=== PATIENT | female | born 1950 | race Caucasian/White ===

== ENCOUNTER → 2018-02-20 09:54 | Outpatient (CLI) | payer MEDICARE, OTHER, SELFPAY ==
--- NOTE | 2018-02-20 10:01 | BI_ITS ---
MAMMOGRAPHY - BILATERAL SCREENING REASON FOR EXAM: Female, 67 years old. Routine annual screening examination. PERTINENT HISTORY: Sister with breast cancer. TECHNIQUE: Digital bilateral breast mary (3D mammographic acquisition) in the CC and MLO projections. 2-D mediolateral oblique (MLO) and craniocaudad (CC) views of both breasts were obtained. CAD: Full Field Digital Mammography with Computer Added Detection was performed. COMPARISON: Comparison is made with prior study dated September 29, 2016 and July 08, 2015. FINDINGS: Breast Composition: There are scattered areas of fibroglandular density. There are no dominant masses or suspicious calcifications. No other significant abnormalities are identified. There has been no significant change since the prior study. BI/SCREENING MAMM (CAD), BILAT IMPRESSION: Stable bilateral screening mammogram. Yearly follow-up mammogram recommended. (A) ASSESSMENT CATEGORY: BIRADS Category 1: Negative. A letter regarding these results will be sent to the patient by the facility within 30 days. Approximately 10% of breast cancers are not detected by mammography. A normal mammogram should not delay biopsy of a clinically suspicious abnormality. [id number] Electronically Signed: August Taylor MD at 10:57 EDT Tel [phone], Service support ,
== END ==
PROVIDERS: Family Provider Family Medicine; PCP Family Medicine; Visit Provider Family Medicine
DX: Z12.31 Encounter for screening mammogram for malignant neoplasm of breast (principal)
CPT/HCPCS: 77063; 77067

== ENCOUNTER → 2018-04-22 08:59 | Outpatient (CLI) | payer MEDICARE, OTHER, SELFPAY ==
[2018-04-22 10:34] LABS: ALB/GLOB Ratio 1.1 RATIO (0.9-2.4); AST(SGOT) 29 U/L (15-37); Alanine Aminotransfer ALT/SGPT 45 U/L (13-56); Albumin, Serum 3.8 g/dL (3.2-5.0); Alkaline Phosphatase 84 U/L (45-117); Anion Gap 9 (5-15); BUN 13 mg/dL (7-18); BUN/Creat Ratio 20.5 RATIO (10-20); Calcium,Total 8.8 mg/dL (8.5-10.1); Chloride 106 mmol/L (98-107); Cholesterol 188 mg/dL (200); Creatinine, Serum 0.63 mg/dL (0.55-1.02); EST Glomerular Filtration Rate 100 mL/min (>60); Est Glom Filt Rate - Afr Amer 121 mL/min (>60); Globulin 3.6 g/dL (2.2-4.2); Glucose 90 mg/dL (74-106); High Density Lipoprotein 49 mg/dL; Potassium 3.8 mmol/L (3.5-5.1); Protein, Total 7.4 g/dL (6.4-8.2); Sodium Level 141 mmol/L (136-145); Triglycerides 185 mg/dL; Very Low Density Lipoprotein 37 mg/dL (5-40)
== END ==
PROVIDERS: Family Provider Family Medicine; PCP Family Medicine; Visit Provider Family Medicine
DX: I10 Essential (primary) hypertension (principal); E78.00 Pure hypercholesterolemia, unspecified
CPT/HCPCS: 36415; 80053; 80061

== ENCOUNTER → 2019-05-01 | Outpatient (CLI) | payer MEDICARE, OTHER, SELFPAY ==
[2019-05-01 10:18] VITALS: BMI 32.7
[2019-05-01 12:49] LABS: AST(SGOT) 26 U/L (15-37); Alanine Aminotransfer ALT/SGPT 40 U/L (13-56); Albumin, Serum 3.9 g/dL (3.2-5.0); Alkaline Phosphatase 81 U/L (45-117); Anion Gap 6 (5-15); BUN 15 mg/dL (7-18); BUN/Creat Ratio 17.8 RATIO (10-20); Calcium,Total 9.1 mg/dL (8.5-10.1); Chloride 105 mmol/L (98-107); Cholesterol 191 mg/dL (200); Creatinine, Serum 0.84 mg/dL (0.55-1.02); EST Glomerular Filtration Rate 71 mL/min (>60); Est Glom Filt Rate - Afr Amer 86 mL/min (>60); Globulin 3.8 g/dL (2.2-4.2); Glucose 96 mg/dL (74-106); High Density Lipoprotein 49 mg/dL; Potassium 3.9 mmol/L (3.5-5.1); Protein, Total 7.7 g/dL (6.4-8.2); Sodium Level 139 mmol/L (136-145); Triglycerides 229 mg/dL; Very Low Density Lipoprotein 46 mg/dL (5-40)
== END | disposition home or self-care (01) ==
LOC: BIMLAB 10:32
PROVIDERS: Family Provider Family Medicine; PCP Family Medicine; Visit Provider Family Medicine
DX: E78.00 Pure hypercholesterolemia, unspecified (principal)
CPT/HCPCS: 36415; 80053; 80061

== ENCOUNTER → 2019-06-18 | Outpatient (CLI) | payer MEDICARE, OTHER, SELFPAY ==
[2019-05-01 10:18] VITALS: BMI 32.7
[2019-06-05 10:01] VITALS: BMI 32.7
--- NOTE | 2019-06-18 11:53 | BI_ITS ---
MAMMOGRAPHY - BILATERAL SCREENING REASON FOR EXAM: Female, 68 years old. Routine annual screening examination. PERTINENT HISTORY: Sisters with breast cancer. TECHNIQUE: Digital bilateral breast easton (3D mammographic acquisition) in the CC and MLO projections. 2-D mediolateral oblique (MLO) and craniocaudad (CC) views of both breasts were obtained. CAD: Full Field Digital Mammography with Computer Added Detection was performed. COMPARISON: Comparison is made with prior study dated February 20, 2018 and April 29, 2017. FINDINGS: Breast Composition: There are scattered areas of fibroglandular density. There are no dominant masses or suspicious calcifications. Stable benign-appearing bilateral axillary lymph nodes. No other significant abnormalities are identified. There has been no significant change since the prior study. BI/SCREEN MAMM (CAD) W/EASTON BILAT IMPRESSION: Stable bilateral screening mammogram. Yearly follow-up mammogram recommended. (A) ASSESSMENT CATEGORY: BIRADS Category 2: Benign. A letter regarding these results will be sent to the patient by the facility within 30 days. Approximately 10% of breast cancers are not detected by mammography. A normal mammogram should not delay biopsy of a clinically suspicious abnormality. [id number] Electronically Signed: August Taylor, at 13:03 EST , Service support ,
== END | disposition home or self-care (01) ==
LOC: OPBI 11:52
PROVIDERS: Family Provider Family Medicine; PCP Family Medicine; Referring Provider Family Medicine; Visit Provider Family Medicine
DX: Z12.31 Encounter for screening mammogram for malignant neoplasm of breast (principal)
CPT/HCPCS: 77063; 77067

== ENCOUNTER → 2020-05-20 11:43 | Outpatient (CLI) | payer MEDICARE, OTHER, SELFPAY ==
[2020-05-20 11:07] VITALS: BMI 33.5
[2020-05-20 13:47] LABS: ALB/GLOB Ratio 1.1 RATIO (0.9-2.4); AST(SGOT) 21 U/L (15-37); Alanine Aminotransfer ALT/SGPT 39 U/L (13-56); Albumin, Serum 3.8 g/dL (3.2-5.0); Alkaline Phosphatase 73 U/L (45-117); Anion Gap 4 (5-15); BUN 13 mg/dL (7-18); BUN/Creat Ratio 20.3 RATIO (10-20); Calcium,Total 9.1 mg/dL (8.5-10.1); Chloride 108 mmol/L (98-107); Cholesterol 185 mg/dL (200); Creatinine, Serum 0.64 mg/dL (0.55-1.02); EST Glomerular Filtration Rate 98 mL/min (>60); Est Glom Filt Rate - Afr Amer 119 mL/min (>60); Globulin 3.6 g/dL (2.2-4.2); Glucose 88 mg/dL (74-106); High Density Lipoprotein 49 mg/dL; Potassium 3.5 mmol/L (3.5-5.1); Protein, Total 7.4 g/dL (6.4-8.2); Sodium Level 141 mmol/L (136-145); Triglycerides 219 mg/dL; Very Low Density Lipoprotein 44 mg/dL (5-40)
== END ==
PROVIDERS: PCP Family Medicine; Referring Provider Family Medicine; Visit Provider Family Medicine
DX: E78.00 Pure hypercholesterolemia, unspecified (principal); I63.9 Cerebral infarction, unspecified
CPT/HCPCS: 36415; 80053; 80061

== ENCOUNTER → 2020-06-19 09:53 | Outpatient (CLI) | payer MEDICARE, OTHER, SELFPAY ==
[2020-05-20 11:07] VITALS: BMI 33.5
--- NOTE | 2020-06-19 09:54 | BI_ITS ---
MAMMOGRAPHY - BILATERAL SCREENING REASON FOR EXAM: Female, 69 years old. Routine annual screening examination. PERTINENT HISTORY: Sisters with breast cancer. TECHNIQUE: Digital bilateral breast easton (3D mammographic acquisition) in the CC and MLO projections. 2-D mediolateral oblique (MLO) and craniocaudad (CC) views of both breasts were obtained. CAD: Full Field Digital Mammography with Computer Added Detection was performed. COMPARISON: Comparison is made with prior study dated 06/18/2019 and 02/20/2018. FINDINGS: Breast Composition: There are scattered areas of fibroglandular density. There are no dominant masses or suspicious calcifications. Stable benign-appearing bilateral axillary lymph nodes. No other significant abnormalities are identified. There has been no significant change since the prior study. BI/SCREEN MAMM (CAD) W/EASTON BILAT IMPRESSION: Stable bilateral screening mammogram. Yearly follow-up mammogram recommended. (A) ASSESSMENT CATEGORY: BIRADS Category 2: Benign. A letter regarding these results will be sent to the patient by the facility within 30 days. Approximately 10% of breast cancers are not detected by mammography. A normal mammogram should not delay biopsy of a clinically suspicious abnormality. [id number] Electronically Signed: August Taylor, at 11:06 EST , Service support ,
== END ==
PROVIDERS: PCP Family Medicine; Referring Provider Family Medicine; Visit Provider Family Medicine
DX: Z12.31 Encounter for screening mammogram for malignant neoplasm of breast (principal)
CPT/HCPCS: 77063; 77067

== ENCOUNTER → 2021-03-05 13:25 | Outpatient (CLI) | payer MEDICARE, OTHER, SELFPAY ==
[2021-02-10 14:06] VITALS: BMI 33.5
--- NOTE | 2021-03-05 13:26 | BD_ITS ---
STUDY: DUAL ENERGY X-RAY ABSORPTIOMETRY / DXA REASON FOR EXAM: Female, 70 years old. Post menopausal screening TECHNIQUE: Bone Mineral Density (BMD) measurements of lumbar spine and bilateral hips were obtained. COMPARISON: None. FINDINGS: Lumbar Spine (L1-L4): g/cm2 (0.945) / T-score (-0.9) / Z-score (1.1) Findings are suggestive of normal bone density with a low fracture risk. Left Femur Total: g/cm2 (0.959) / T-score (0.1) / Z-score (1.6) Left Femoral Neck: g/cm2 (0.745) / T-score (-0.9) / Z-score (0.8) Right Femur Total: g/cm2 (0.944) / T-score (0.0) / Z-score (1.5) Right Femoral Neck: g/cm2 (0.725) / T-score (-1.1) / Z-score (0.6) BD/Dexa Bone Density Study IMPRESSION: The patient is considered osteopenic as outlined below according to World Willard Organization (WHO) criteria with a moderate fracture risk. Reference Information: The T-score is the number of standard deviations above or below the standard which is normal for young adults at their peak bone mineral density. The World Health Organization (WHO) interprets the T-scores as follows: Above -1 Normal bone density Between -1 and -2.5 Osteopenia Equal to / or below -2.5 Osteoporosis As a practical clinical guideline, osteopenia may be graded as follows: Mild -1 through -1.5 Moderate -1.6 through -2.0 Severe -2.1 through -2.4 The Z-score is the number of standard deviations above or below age-matched controls. A Z-score of less than -1.5 would be considered abnormal. References: 1. NIH Osteoporosis and Related Bone Diseases www osteo.org 2. International Society for Clinical Densitometry www iscd.org 3. National Osteoporosis Foundation www nof.org Electronically Signed: Monster Prabhakar MD at 8:42 EDT , Service support ,
== END ==
PROVIDERS: PCP Family Medicine; Referring Provider Family Medicine; Visit Provider Family Medicine
DX: Z78.0 Asymptomatic menopausal state (principal); M85.80 Other specified disorders of bone density and structure, unspecified site
CPT/HCPCS: 77080

== ENCOUNTER 2021-04-01 06:47 | Day surgery (SDC) | payer MEDICARE, OTHER, SELFPAY ==
[2021-02-10 14:06] VITALS: BMI 33.5
--- NOTE | 2021-04-01 | COLBX_PTH ---
PATIENT: AARON CORONADO LOC: EN U#:[id number] AGE/SX: 70/F ROOM: RE04/01/[address]: Dr. Nita Mark MD : 1950 BED: DIS: 04/01/2021 SPEC #: [id number] RECD: 04/01/21 11:03 STATUS: HERNÁN YOSEPH #: [id number] MAXIMUS: 04/01/21 00:[address]: Nita Mark DEPT: SURGICAL PATHOLOGY RECD BY: Elver Genao ENTERED: 04/01/21 11:04 SP TYPE: COLON BX QUINN DR: Dr. Jorge Cardoso, DO Tissues: A - Ascending colon B - Transverse colon C - Ascending colon D - Transverse colon E - Descending colon F - Descending colon G - Sigmoid colon biopsy Procedures: Surgery Specimen Level IV HEADER OPERATION: Colonoscopy ? open access (MAC) PRE-OP DIAGNOSIS: Screening for colon cancer TISSUE SUBMITTED: A - Biopsy ascending polyp, B - Transverse polyp, C - Biopsy transverse polyp (container says ?ascending?), D - Transverse polyp, E - Biopsy descending polyp, F - Biopsy descending polyp x4, G - Biopsy sigmoid polyp x3 MICROSCOPIC DIAGNOSIS A. Ascending colon polyp, biopsy: Tubular adenoma. B. Transverse colon polyp, biopsy: Tubular adenoma. C. Transverse colon polyp, biopsy: Tubular adenoma. D. Transverse colon polyp, biopsy: Tubulovillous adenoma. E. Descending colon polyp, biopsy: Fragments of colonic mucosa, no pathologic diagnosis. F. Descending colon polyp, biopsy: Fragments of hyperplastic polyp. G. Sigmoid polyp, biopsy: Fragments of hyperplastic polyp. SJ:effie 04/02/2021 MICROSCOPIC DESCRIPTION Slides are reviewed. GROSS DESCRIPTION A - Received in fixative is one container labeled with the patient's name and designated biopsy ascending polyp. The specimen consists of one irregular fragment of light carlos soft tissue that measures 0.4 x 0.4 x 0.1 cm. The specimen is totally submitted in one cassette. B - Received in fixative is one container labeled with the patient's name and designated transverse polyp. The specimen consists of a carlos-pink polyp measuring 0.7 x 0.5 x 0.3 cm. The specimen is totally submitted in one cassette. C - Received in fixative is one container labeled with the patient's name and designated ascending polyp (as per requisition ?transverse polyp?). The specimen consists of one irregular fragment of light carlos soft tissue that measures 0.4 x 0.2 x 0.1 cm. The specimen is totally submitted in one cassette. D - Received in fixative is one container labeled with the patient's name and designated transverse polyp. The specimen consists of a carlos-pink polyp measuring 0.7 x 0.6 x 0.6 cm. The polyp is bisected. Also present in the container are multiple fragments of carlos soft tissue measuring in aggregate 0.5 x 0.3 x 0.1 cm. The entire specimen is submitted in one cassette. E - Received in fixative is one container labeled with the patient's name and designated descending polyp. The specimen consists of multiple irregular fragments of light carlos soft tissue that in aggregate measure 1 x 0.3 x 0.1 cm. The specimen is totally submitted in one cassette. F - Received in fixative is one container labeled with the patient's name and designated descending polyp. The specimen consists of multiple irregular fragments of light carlso soft tissue that in aggregate measure 1.5 x 0.7 x 0.1 cm. The specimen is totally submitted in one cassette. G - Received in fixative is one container labeled with the patient's name and designated sigmoid polyp. The specimen consists of multiple irregular fragments of light carlos soft tissue that in aggregate measure 1.5 x 0.3 x 0.1 cm. The specimen is totally submitted in one cassette. / SJ:rg 04/01/21 TC:1 CPT: 35374 x7
[2021-04-01] MEDS: Lactated Ringers 1,000 ML 100 ML IV ×2 (07:00→09:31)
[2021-04-01 07:16] VITALS: BP 117/74; PULSE 78; RESP 16; TEMP 36.5; O2SAT 98; BMI 31.4
--- NOTE | 2021-04-01 07:36 | HP.PCM_ITS ---
HPI - General HPI Narrative AARON CORONADO, is a 70 F who presents for screening colonoscopy. Patient's never had a previous colonoscopy. Patient denies any family history of colon cancer. Patient denies any chronic abdominal pain/nausea/vomiting. Patient does have reflux which is controlled with Nexium. Patient states she had an EGD about 10 years ago. [facility] Medical History (Updated 04/01/21 @ 08:[address] Nita Mark MD) Arthritis Blackout Cataracts, both eyes Easy bruising GERD (gastroesophageal reflux disease) Hearing problem High cholesterol History of sarcoidosis Hypertension Non-smoker Shortness of breath on exertion Sleep apnea Stroke TIA (transient ischemic attack) Wears dentures Home Medications cholecalciferol (vitamin D3) 1,000 unit PO DAILY 09/04/15 [History Last Taken Unknown] potassium 99 mg PO DAILY 09/04/15 [History Last Taken Unknown] pyridoxine (vitamin B6) 200 mg PO DAILY 09/04/15 [History Last Taken Unknown] vitamin E (dl, acetate) 400 units PO DAILY 09/04/15 [History Last Taken Unknown] aspirin 81 mg tablet,delayed release 81 mg PO DAILY 04/13/18 [History Last Taken Unknown] esomeprazole magnesium 20 mg capsule,delayed release 20 mg PO DAILY 04/13/18 [History Last Taken Unknown] vitamin B12 500 mcg-folic acid 400 mcg tablet 1 tab PO DAILY 04/13/18 [History Last Taken Unknown] ascorbic acid (vitamin C) 500 mg capsule 1,000 mg PO DAILY cap 08/28/18 [History Last Taken Unknown] rosuvastatin 10 mg PO QHS 03/30/21 [History Last Taken Unknown] valsartan-hydrochlorothiazide 1 tab PO DAILY 03/30/21 [History Last Taken Unknown] Allergy/AdvReac Type Severity Reaction Status Date / Time latex Allergy BREAK Verified 04/01/21 07:01 OUT RED Family History Brother Prostate cancer Heart disease History of open heart surgery Sister Heart disease Breast cancer Hypertension Daughter Congenital heart disease Father Heart disease Mother Heart disease Surgical History (Updated 03/30/21 @ 16:30 by Thea Bermudez) History of bilateral cataract extraction History of bladder suspension procedure History of cholecystectomy History of endoscopy History of hysterectomy History of knee replacement History of left knee replacement Social History Smoking Status: Never smoker alcohol intake: never substance use type: does not use what type of physical activity do you participate in: none Past Medical/Surgical History Planned Operation Planned Operative Procedure/s: Colonoscopy S.O.S: No Previous Hospitalizations/Surgeries HX Hospitalizations: No HX of Surgeries: 2006- GALLBLADDER - RT SHOULDER ARTHROSCOPY 1996-HYSTERECTOMY 1996-BLADDER SURGERY - FATTY MUSCLE TISSUE SURGERY 2008-LEFT TOTAL KNEE REPLACEMENT Any Problems With Anesthesia: No You/Your Family Experience Fever (Hyperthermia) With Anes: No Cholinesterase deficiency: No Cardiovascular Hx Chest Pain within Last 2 months: No Hx of Irregular Heartbeat and/or Afib: No Hx Heart Attack: No Hx Congestive Heart Failure: No Hx Rheumatic Fever: No Hx Hypertension: Yes Hx Internal Defibrillator: No Hx Pacemaker: No Hx Cardiac Catheterization: No Hx Cardiac Surgery/Stents/Etc.: No Hx Stress Test: No Hx Pain in Legs when Walking/Leg Cramps: No (JUST KNEE PAIN) Respiratory Chronic Cough: No HX of Shortness of Breath: No Hoarseness: No Hx Chronic Obstructive Pulmonary Disease (COPD): No Hx Asthma: No Hx Emphysema: No Hx Sleep Apnea: No CPAP: No BIPAP: No Hx Respiratory Tract Infection/Cold (presently): No Do You Snore Loudly (louder than talking or can be heard): Yes Do You Often Feel Tired/ Fatigued/ Sleepy Dring Daytime?: No Has Anyone Observed You Stop Breathing During Sleep?: Yes Result (for STOP score): Positive Hx Smoking: No Smoking Status: Never smoker Gastrointestinal Hx Gastroesophageal Reflux: Yes Controlled With Meds: Yes (DEXILANT) Hx Gastrointestinal Disorders: No Hx Gastrointestinal Bleed: No Hx Ulcer: No Hx Hiatal Hernia: No Difficulty Chewing/Swallowing: No Special diet followed at home: No Hx Unplanned Weight Loss of 20#: No HX Unplanned Weight Gain of 20#: No Neurological Hx Seizures: No HX Syncope/Blackout Spells/Unconsciousness: Yes (EPISODES OF PASSING OUT IN PAST- NOT IN 3MONTHS) Hx Transient Ischemic Attacks (TIA): Yes (1996- NO RESIDUAL) Hx Multiple Sclerosis: No Hx Parkinson's Disease: No Hx Head/Neck Injury: No Hx Headaches: No Hx Back Injury/Pain: No Recent Onset of Speech Difficulty: No Restless Legs: Yes (SHE THINKS SHE DOES- NEVER TREATED) Does patient have nerve stimulator: No Blood Disorder Hx Leukemia: No Bleeding Tendencies: No (LOW DOSE ASPIRIN) Hx Deep Vein Thrombosis: No Hx High Cholesterol: Yes (ON MEDICATION) Blood Transmitted Disease: No Hx Hepatitis: No Hx Cirrhosis: No Hx Anemia: No Hx Blood Disorders: No Reproduction : No Is Patient Lactating: No Hx Tubal Ligation: No Genitourinary Hx Renal Disease: No Musculoskeletal Hx Arthritis: Yes Hx Rheumatoid Arthritis: No Hx Gout: No Recent Onset of an Orthopedic Problem: Yes (RT KNEE) Endocrine Hx Diabetes: No Thyroid Disease: No Hx Steroid Therapy: Yes (CORTISONE SHOTS) Psycho/Social Hx Substance Use: No Hx Alcohol Use: No Hx Anxiety: No Hx Depression: No Mental Illness: No Hx Dementia: No Miscellaneous Hx Cancer: No Recent Exposure to Contagious Disease: No Hx of C-Diff: No Any Loose Teeth: No (UPPER DENTURES) Allergies latex Allergy (Verified 04/01/21 07:01) BREAK OUT RED Discharge Is Pt Admitted From a Intermediate, or a M[facility]: No Who Could Help: After D/C, Where Do you Plan to Go: Return Home From the PAT History Number of Risk Factors: 1 Vital Signs Vital Signs Vital Signs: 04/01/21 07:16 Temperature 97.7 F L Temperature Source Temporal Pulse Rate 78 Respiratory Rate 16 Respiratory Pattern Normal Blood Pressure 117/74 Blood Pressure Mean 88 Blood Pressure Source Monitor Blood Pressure Position Semi-Fowlers Blood Pressure Location Right Arm Pulse Ox 98 Oxygen Delivery Method Room Air Weight Weight: 171 lb 15.369 oz Body Mass Index (BMI) 31.4 Physical Exam Const alert, oriented x3 and no apparent distress HEENT normocephalic and head/scalp atraumatic Resp normal respiratory effort Cardio regular rate GI soft to palpation and non-tender; Negative for non-distended Palpation: Negative for guarding Extremity no clubbing, cyanosis or edema Neuro CN's II-XII intact bilaterally Psych mental status grossly normal Assessment & Plan Assessment/Plan (1) Screening for colon cancer: Procedure Criteria Type of Procedure Procedure Type: Elective Elective Risks - COVID COVID Risk Discussion: The surgeon/proceduralist and patient have discussed in detail the risk of exposure to and/or potential harm posed by the COVID-19 virus with having a surgery/procedure at this time versus the risk of delaying the surgery/procedure. It is not possible to know either the risk of delaying the surgery or procedure or chance of getting an infection with perfect accuracy, but a joint decision was made between the patient and the surgeon/proceduralist to proceed at this time with the scheduled surgery/procedure as indicated on the consent form. Surgery Risks - Colonoscopy Risks Include but are not Limited To: Risks include but are not limited to: Bleeding, perforation requiring further surgery, inability to complete colonoscopy requiring barium enema.
[2021-04-01 09:45] VITALS: BP 117/74; BP 99/60; PULSE 77; RESP 18; TEMP 35.8; O2SAT 99
--- NOTE | 2021-04-01 09:47 | OP.COLON_ITS ---
Patient Name: June Meade Procedure Date: 04/01/2021 8:31 AM Date of : 1950 Age: 70 Procedure: Colonoscopy Indications: Screening for colorectal malignant neoplasm Providers: Nita Mark MD Medicines: Monitored Anesthesia Care Patient Profile: This is a 70 year old female. Last Colonoscopy: none. The patient's first colonoscopy is today. Complications: No immediate complications. Procedure: Pre-Anesthesia Assessment: - Prior to the procedure, a History and Physical was performed, and patient medications and allergies were reviewed. The patient's tolerance of previous anesthesia was also reviewed. The risks and benefits of the procedure and the sedation options and risks were discussed with the patient. All questions were answered, and informed consent was obtained. Prior Anticoagulants: The patient has taken aspirin, last dose was 5 days prior to procedure. ASA Grade Assessment: Per anesthesia. After reviewing the risks and benefits, the patient was deemed in satisfactory condition to undergo the procedure. After I obtained informed consent, the scope was passed under direct vision. Throughout the procedure, the patient's blood pressure, pulse, and oxygen saturations were monitored continuously. The pediatric colonoscope was introduced through the anus and advanced to the cecum, identified by the appendiceal orifice, ileocecal valve and palpation. The colonoscopy was performed without difficulty. The colonoscopy was technically difficult and complex due to a tortuous colon. The patient tolerated the procedure well. The quality of the bowel preparation was good. Scope In: 8:39:04 AM Scope Withdrawal Time 0 hours 53 minutes 51 seconds Scope Out: 9:38:03 AM Total Procedure Duration Time 0 hours 58 minutes 59 seconds Findings: Hemorrhoids were found on perianal exam. Two semi-pedunculated polyps were found in the transverse colon. The polyps were 7 to 8 mm in size. These polyps were removed with a piecemeal technique using a hot snare. Resection and retrieval were complete. Eight sessile polyps were found in the sigmoid colon, descending colon and ascending colon. The polyps were less than 5 mm in size. These polyps were removed with a cold biopsy forceps. Resection and retrieval were complete. Multiple small-mouthed diverticula were found in the sigmoid colon, descending colon and transverse colon. Impression: - Hemorrhoids found on perianal exam. - Two 7 to 8 mm polyps in the transverse colon, removed piecemeal using a hot snare. Resected and retrieved. - Eight less than 5 mm polyps in the sigmoid colon, in the descending colon and in the ascending colon, removed with a cold biopsy forceps. Resected and retrieved. - Diverticulosis in the sigmoid colon, in the descending colon and in the transverse colon. Recommendation: - Discharge patient to home. - Resume previous diet. - Resume aspirin at prior dose in 2 days. - Continue present medications. - Repeat colonoscopy in 1 year for surveillance after piecemeal polypectomy. Procedure Code(s): --- Professional --- 48698, PT, Colonoscopy, flexible; with removal of tumor(s), polyp(s), or other lesion(s) by snare technique [id number], 59, Colonoscopy, flexible; with biopsy, single or multiple Diagnosis Code(s): --- Professional --- Z12.11, Encounter for screening for malignant neoplasm of colon K64.9, Unspecified hemorrhoids D12.3, Benign neoplasm of transverse colon (hepatic flexure or splenic flexure) D12.5, Benign neoplasm of sigmoid colon D12.4, Benign neoplasm of descending colon D12.2, Benign neoplasm of ascending colon K57.30, Diverticulosis of large intestine without perforation or abscess without bleeding CPT copyright 2017 [employer]. All rights reserved. The codes documented in this report are preliminary and upon filling winder review may be revised to meet current compliance requirements. MD Nita Barr MD 04/01/2021 9:46:33 AM This report has been signed electronically. Number of Addenda: 0 Note Initiated On: 04/01/2021 8:31 AM
--- NOTE | 2021-04-01 09:47 | OP.CCLET_ITS ---
04/01/2021 Jorge Cardoso Re : Colonoscopy procedure for June Meade Dear Dr. Cardoso This procedure was performed on Thursday, April 01, 2021. My impressions and recommendations are as follows: Impressions : - Hemorrhoids found on perianal exam. - Two 7 to 8 mm polyps in the transverse colon, removed piecemeal using a hot snare. Resected and retrieved. - Eight less than 5 mm polyps in the sigmoid colon, in the descending colon and in the ascending colon, removed with a cold biopsy forceps. Resected and retrieved. - Diverticulosis in the sigmoid colon, in the descending colon and in the transverse colon. Recommendations : - Discharge patient to home. - Resume previous diet. - Resume aspirin at prior dose in 2 days. - Continue present medications. - Repeat colonoscopy in 1 year for surveillance after piecemeal polypectomy. My findings are described in the full procedure note, which is enclosed. If I can be of further assistance, please feel free to contact me at Doctor phone number(s): , Work: . Sincerely, MD Nita Barr MD 04/01/2021 9:46:33 AM This report has been signed electronically.
[2021-04-01 09:50] VITALS: BP 117/74; BP 117/81; PULSE 72; RESP 16; O2SAT 98
[2021-04-01 09:55] VITALS: BP 117/74; BP 119/78; PULSE 69; RESP 16; O2SAT 97
[2021-04-01 10:00] VITALS: BP 117/74; BP 122/73; PULSE 72; RESP 16; TEMP 35.9; O2SAT 99
[2021-04-01 10:18] VITALS: BP 117/74
== END 2021-04-01 10:41 ==
LOC: EN 06:48 → AC 06:50
PROVIDERS: PCP Family Medicine; Referring Provider Family Medicine; Visit Provider Surgery
PROC: 0DJD8ZZ Inspection of Lower Intestinal Tract, Via Natural or Artificial Opening Endoscopic (ICD-10-PCS; CPT 45378; principal; 2021-04-01 08:10)
DX: Z12.11 Encounter for screening for malignant neoplasm of colon (principal); D12.2 Benign neoplasm of ascending colon; D12.4 Benign neoplasm of descending colon; D12.5 Benign neoplasm of sigmoid colon; D12.3 Benign neoplasm of transverse colon; K64.9 Unspecified hemorrhoids; K57.30 Diverticulosis of large intestine without perforation or abscess without bleeding; Q43.8 Other specified congenital malformations of intestine; I10 Essential (primary) hypertension; E78.00 Pure hypercholesterolemia, unspecified; G47.30 Sleep apnea, unspecified; K21.9 Gastro-esophageal reflux disease without esophagitis; M19.90 Unspecified osteoarthritis, unspecified site; Z79.82 Long term (current) use of aspirin; Z79.899 Other long term (current) drug therapy; Z86.73 Personal history of transient ischemic attack (TIA), and cerebral infarction without residual deficits
CPT/HCPCS: 45380; 45385; 88305; J7120; A4216; J2405

== ENCOUNTER → 2021-05-28 11:16 | Outpatient (CLI) | payer MEDICARE, OTHER, SELFPAY ==
[2021-05-28 12:36] LABS: AST(SGOT) 25 U/L (15-37); Alanine Aminotransfer ALT/SGPT 32 U/L (13-56); Albumin, Serum 3.8 g/dL (3.2-5.0); Alkaline Phosphatase 67 U/L (45-117); Anion Gap 7 (5-15); BUN 13 mg/dL (7-18); BUN/Creat Ratio 20.7 RATIO (10-20); Calcium,Total 9.3 mg/dL (8.5-10.1); Chloride 103 mmol/L (98-107); Cholesterol 190 mg/dL (200); Creatinine, Serum 0.63 mg/dL (0.55-1.02); EST Glomerular Filtration Rate 100 mL/min (>60); Est Glom Filt Rate - Afr Amer 121 mL/min (>60); Globulin 3.9 g/dL (2.2-4.2); Glucose 94 mg/dL (74-106); High Density Lipoprotein 52 mg/dL; Potassium 4.1 mmol/L (3.5-5.1); Protein, Total 7.7 g/dL (6.4-8.2); Sodium Level 139 mmol/L (136-145); Triglycerides 240 mg/dL; Very Low Density Lipoprotein 48 mg/dL (5-40)
== END ==
PROVIDERS: PCP Family Medicine; Referring Provider Family Medicine; Visit Provider Family Medicine
DX: I10 Essential (primary) hypertension (principal)
CPT/HCPCS: 36415; 80053; 80061

== ENCOUNTER → 2021-07-24 09:55 | Outpatient (CLI) | payer MEDICARE, OTHER, SELFPAY ==
--- NOTE | 2021-07-24 09:55 | BI_ITS ---
MAMMOGRAPHY - BILATERAL SCREENING REASON FOR EXAM: Female, 70 years old. Routine annual screening examination. PERTINENT HISTORY: Sisters with breast cancer. TECHNIQUE: Digital bilateral breast easton (3D mammographic acquisition) in the CC and MLO projections. 2-D mediolateral oblique (MLO) and craniocaudad (CC) views of both breasts were obtained. CAD: Full Field Digital Mammography with Computer Added Detection was performed. COMPARISON: Comparison is made with prior study dated 06/19/2020 and 06/18/2019 FINDINGS: Breast Composition: There are scattered areas of fibroglandular density. There are no dominant masses or suspicious calcifications. Stable benign-appearing bilateral axillary nodes. No other significant abnormalities are identified. There has been no significant change since the prior study. BI/SCRN MAMM (CAD)W/EASTON BILAT IMPRESSION: Stable bilateral screening mammogram. Yearly follow-up mammogram recommended. (A) ASSESSMENT CATEGORY: BIRADS Category 2: Benign. A letter regarding these results will be sent to the patient by the facility within 30 days. Approximately 10% of breast cancers are not detected by mammography. A normal mammogram should not delay biopsy of a clinically suspicious abnormality. [id number] Electronically Signed: August Taylor MD at 12:48 EST , Service support ,
== END ==
PROVIDERS: PCP Family Medicine; Referring Provider Family Medicine; Visit Provider Family Medicine
DX: Z12.31 Encounter for screening mammogram for malignant neoplasm of breast (principal)
CPT/HCPCS: 77063; 77067

== ENCOUNTER 2022-04-05 06:14 | Day surgery (SDC) | payer MEDICARE, OTHER, SELFPAY ==
[2022-04-05] VITALS (7 sets, daily range): BP systolic 86–121; BP diastolic 48–65; PULSE 57–70; RESP 14–18; TEMP 36.1–36.4; O2SAT 90–99; BMI 32.9
--- NOTE | 2022-04-05 | COLBX_PTH ---
PATIENT: AARON CORONADO LOC: EN U#:[id number] AGE/SX: 71/F ROOM: RE04/05/[address]: Dr. Nita Mark MD : 1950 BED: DIS: 04/05/2022 SPEC #: [id number] RECD: 04/05/22 09:50 STATUS: HERNÁN RENancy #: [id number] MAXIMUS: 04/05/22 00:[address]: Nita Mark DEPT: SURGICAL PATHOLOGY RECD BY: Elver Genao ENTERED: 04/05/22 09:51 SP TYPE: COLON BX QUINN DR: Dr. Jorge Cardoso, DO Tissues: A - Transverse colon B - Sigmoid colon biopsy C - Rectum, NOS Procedures: Surgery Specimen Level IV HEADER OPERATION: Colonoscopy ? open access (MAC) with polypectomy PRE-OP DIAGNOSIS: History of adenomatous colonic polyps TISSUE SUBMITTED: A ? Transverse polyp, B ? Sigmoid polyp, C ? Rectal polyp biopsy, multiple MICROSCOPIC DIAGNOSIS A. Transverse colon, biopsy: Fragments of hyperplastic polyp. B. Sigmoid colon polyp, biopsy: Consistent with hyperplastic polyp with cautery artifact. C. Rectal polyp, biopsy: Fragments of hyperplastic polyp. AM:effie 04/06/2022 MICROSCOPIC DESCRIPTION Slides are reviewed. GROSS DESCRIPTION A - Received in fixative is one container labeled with the patient's name and designated transverse polyp. The specimen consists of multiple irregular fragments of light carlos soft tissue that in aggregate measure 0.8 x 0.5 x 0.1 cm. The specimen is totally submitted in one cassette. B - Received in fixative is one container labeled with the patient's name and designated sigmoid polyp. The specimen consists of one irregular fragment of light carlos soft tissue that measures 0.3 x 0.2 x 0.1 cm. The specimen is totally submitted in one cassette. C - Received in fixative is one container labeled with the patient's name and designated rectal polyp biopsy, multiple. The specimen consists of multiple irregular fragments of light carlos soft tissue that in aggregate measure 1.5 x 0.6 x 0.1 cm. The specimen is totally submitted in one cassette. / VENKAT:effie 04/05/2022 TC:5 CPT: 51929 x3
[2022-04-05] MEDS: Lactated Ringers 1,000 ML 15 ML IV (06:59)
--- NOTE | 2022-04-05 07:23 | H&P.OPEN ---
HPI - General [facility] Narrative AARON CORONADO, is a 71 F who presents for screening colonoscopy due to history of colon polyps. Patient's last colonoscopy was in March 2021. Patient had several tubular adenomas as well as a tubulovillous adenoma in the transverse colon. Patient states she has bowel movements daily denies any blood. Patient denies any family history of colon cancer. Patient has a chronic abdominal pain/nausea/vomiting. [facility] Medical History (Updated 04/05/22 @ 07:[address] Nita Mark MD) Anemia Arthritis Blackout Cataracts, both eyes Difficulty swallowing GERD (gastroesophageal reflux disease) Hearing problem High cholesterol History of colonic polyps History of diverticulitis History of sarcoidosis Hypertension Hypertension Leg cramps Loss of consciousness Non-smoker Restless legs Shortness of breath on exertion Stroke TIA (transient ischemic attack) Wears glasses Wears hearing aid Wears partial dentures Home Medications cholecalciferol (vitamin D3) 25 mcg (1,000 unit) tablet 1,000 unit PO DAILY supplement 09/04/15 [History Last Taken Unknown] potassium 99 mg tablet 99 mg PO DAILY supplement 09/04/15 [History Last Taken Unknown] pyridoxine (vitamin B6) 50 mg tablet 200 mg PO DAILY supplement 09/04/15 [History Last Taken Unknown] vitamin E (dl, acetate) 180 mg (400 unit) capsule 400 units PO DAILY supplement 09/04/15 [History Last Taken Unknown] aspirin 81 mg tablet,delayed release 81 mg PO DAILY heart health 04/13/18 [History Last Taken Unknown] vitamin B12 500 mcg-folic acid 400 mcg tablet 1 tab PO DAILY supplement 04/13/18 [History Last Taken Unknown] ascorbic acid (vitamin C) 500 mg capsule 1,000 mg PO DAILY supplement 08/28/18 [History Last Taken Unknown] rosuvastatin 10 mg tablet 10 mg PO QHS hyperlipedemia #90 tabs 05/28/21 [Rx Last Taken Unknown] valsartan 160 mg-hydrochlorothiazide 12.5 mg tablet 1 tab PO DAILY BP #90 tabs 05/28/21 [Rx Last Taken Unknown] esomeprazole magnesium 40 mg capsule,delayed release 40 mg PO DAILY GERD #90 caps 11/19/21 [Rx Last Taken 04/05/22] Allergy/AdvReac Type Severity Reaction Status Date / Time latex Allergy BREAK Verified 04/05/22 06:44 OUT RED Family History (Updated 01/28/22 @ 15:52 by Kandice Manning) Brother Prostate cancer Heart disease History of open heart surgery Colon cancer Sister Heart disease Breast cancer Hypertension Daughter Congenital heart disease Father Heart disease Mother Heart disease Surgical History (Updated 03/31/22 @ 10:46 by Rochelle Diana) History of bilateral cataract extraction History of bladder suspension procedure History of cholecystectomy History of colonoscopy History of endoscopy History of hysterectomy History of knee replacement History of left knee replacement Social History Smoking Status: Never smoker alcohol intake: never substance use type: does not use what type of physical activity do you participate in: none Past Medical/Surgical History Planned Operation Planned Operative Procedure/s: OA-CSCOPE S.O.S: No Previous Hospitalizations/Surgeries HX Hospitalizations: No HX of Surgeries: 2006- GALLBLADDER - RT SHOULDER ARTHROSCOPY 1996-HYSTERECTOMY 1996-BLADDER SURGERY - FATTY MUSCLE TISSUE SURGERY 2008-LEFT TOTAL KNEE REPLACEMENT Any Problems With Anesthesia: No You/Your Family Experience Fever (Hyperthermia) With Anes: No Cholinesterase deficiency: No Cardiovascular Hx Chest Pain within Last 2 months: No Hx of Irregular Heartbeat and/or Afib: No Hx Heart Attack: No Hx Congestive Heart Failure: No Hx Rheumatic Fever: No Hx Hypertension: Yes (CONTROLLED WITH MED) Hx Internal Defibrillator: No Hx Pacemaker: No Hx Cardiac Catheterization: No Hx Cardiac Surgery/Stents/Etc.: No Hx Stress Test: No Hx Pain in Legs when Walking/Leg Cramps: No (JUST KNEE PAIN) Respiratory Chronic Cough: No HX of Shortness of Breath: No Hoarseness: No Hx Chronic Obstructive Pulmonary Disease (COPD): No Hx Asthma: No Hx Emphysema: No Hx Sleep Apnea: No CPAP: No BIPAP: No Hx Respiratory Tract Infection/Cold (presently): No Do You Snore Loudly (louder than talking or can be heard): Yes Do You Often Feel Tired/ Fatigued/ Sleepy Dring Daytime?: No Has Anyone Observed You Stop Breathing During Sleep?: No Result (for STOP score): Positive Hx Smoking: No Smoking Status: Never smoker Gastrointestinal Hx Gastroesophageal Reflux: Yes Controlled With Meds: Yes (DEXILANT) Hx Gastrointestinal Disorders: No Hx Gastrointestinal Bleed: No Hx Ulcer: No Hx Hiatal Hernia: No Difficulty Chewing/Swallowing: No Special diet followed at home: No Hx Unplanned Weight Loss of 20#: No HX Unplanned Weight Gain of 20#: No Neurological Hx Seizures: No HX Syncope/Blackout Spells/Unconsciousness: Yes (EPISODES OF PASSING OUT IN PAST- NOT IN 3MONTHS) Hx Transient Ischemic Attacks (TIA): Yes (1996- NO RESIDUAL) Hx Multiple Sclerosis: No Hx Parkinson's Disease: No Hx Head/Neck Injury: No Hx Headaches: No Hx Back Injury/Pain: No Recent Onset of Speech Difficulty: No Restless Legs: Yes (SHE THINKS SHE DOES- NEVER TREATED) Does patient have nerve stimulator: No Blood Disorder Hx Leukemia: No Bleeding Tendencies: No (LOW DOSE ASPIRIN) Hx Deep Vein Thrombosis: No Hx High Cholesterol: Yes (ON MEDICATION) Blood Transmitted Disease: No Hx Hepatitis: No Hx Cirrhosis: No Hx Anemia: No Hx Blood Disorders: No Reproduction : No Is Patient Lactating: No Hx Tubal Ligation: No Genitourinary Hx Renal Disease: No Musculoskeletal Hx Arthritis: Yes Hx Rheumatoid Arthritis: No Hx Gout: No Recent Onset of an Orthopedic Problem: Yes (RT KNEE) Endocrine Hx Diabetes: No Thyroid Disease: No Hx Steroid Therapy: Yes (CORTISONE SHOTS) Psycho/Social Hx Substance Use: No Hx Alcohol Use: No Hx Anxiety: No Hx Depression: No Mental Illness: No Hx Dementia: No Miscellaneous Hx Cancer: No Recent Exposure to Contagious Disease: No Hx of C-Diff: No Any Loose Teeth: No (UPPER DENTURES) Allergies latex Allergy (Verified 04/05/22 06:44) BREAK OUT RED Discharge Is Pt Admitted From a Detention, or a Alf: No After D/C, Where Do you Plan to Go: Return Home From the [facility] History Number of Risk Factors: 1 Vital Signs Vital Signs Vital Signs: 04/05/22 06:45 04/05/22 06:45 Temperature 97 F L Temperature Source Temporal Pulse Rate 57 L Respiratory Rate 18 Respiratory Pattern Normal Blood Pressure 121/65 H Blood Pressure Mean 83 Blood Pressure Source Monitor Blood Pressure Position Semi-Fowlers Blood Pressure Location Left Arm Pulse Ox 98 Oxygen Delivery Method Room Air Weight Weight: 174 lb 2.643 oz Body Mass Index (BMI) 32.9 Physical Exam Const alert, oriented x3 and no apparent distress HEENT normocephalic and head/scalp atraumatic Resp normal respiratory effort Cardio regular rate GI soft to palpation and non-tender; Negative for non-distended Palpation: Negative for guarding Extremity no clubbing, cyanosis or edema Neuro CN's II-XII intact bilaterally Psych mental status grossly normal Assessment & Plan Assessment/Plan (1) Hx of adenomatous colonic polyps: Surgery Risks - Colonoscopy Risks Include but are not Limited To: Risks include but are not limited to: Bleeding, perforation requiring further surgery, inability to complete colonoscopy requiring barium enema.
--- NOTE | 2022-04-05 08:12 | OP.COLON_ITS ---
Patient Name: June Meade Procedure Date: 04/05/2022 7:25 AM Date of : 1950 Age: 71 Procedure: Colonoscopy Indications: High risk colon cancer surveillance: Personal history of adenoma with villous component Providers: Nita Mark MD Medicines: Monitored Anesthesia Care Patient Profile: This is a 71 year old female. Last Colonoscopy: 1 year ago. Complications: No immediate complications. Procedure: Pre-Anesthesia Assessment: - Prior to the procedure, a History and Physical was performed, and patient medications and allergies were reviewed. The patient's tolerance of previous anesthesia was also reviewed. The risks and benefits of the procedure and the sedation options and risks were discussed with the patient. All questions were answered, and informed consent was obtained. Prior Anticoagulants: The patient has taken aspirin, last dose was 5 days prior to procedure. ASA Grade Assessment: Per anesthesia. After reviewing the risks and benefits, the patient was deemed in satisfactory condition to undergo the procedure. After I obtained informed consent, the scope was passed under direct vision. Throughout the procedure, the patient's blood pressure, pulse, and oxygen saturations were monitored continuously. The pediatric colonoscope was introduced through the anus and advanced to the cecum, identified by the appendiceal orifice, ileocecal valve and palpation. The colonoscopy was performed without difficulty. The patient tolerated the procedure well. The quality of the bowel preparation was good. Scope In: 7:33:00 AM Scope Withdrawal Time 0 hours 25 minutes 15 seconds Scope Out: 8:03:17 AM Total Procedure Duration Time 0 hours 30 minutes 17 seconds Findings: The perianal and digital rectal examinations were normal. Scattered small-mouthed diverticula were found in the sigmoid colon, descending colon and transverse colon. Two semi-sessile polyps were found in the sigmoid colon and transverse colon. The polyps were 3 to 5 mm in size. These polyps were removed with a hot snare. Resection and retrieval were complete. Multiple sessile polyps were found in the rectum. The polyps were less than 5 mm in size. These polyps were removed with a cold biopsy forceps. Resection and retrieval were complete. The exam was otherwise without abnormality. Impression: - Diverticulosis in the sigmoid colon, in the descending colon and in the transverse colon. - Two 3 to 5 mm polyps in the sigmoid colon and in the transverse colon, removed with a hot snare. Resected and retrieved. - Multiple less than 5 mm polyps in the rectum, removed with a cold biopsy forceps. Resected and retrieved. - The examination was otherwise normal. Recommendation: - Discharge patient to home. - Resume previous diet. - Continue present medications. - Await pathology results. - Repeat colonoscopy in 3 - 5 years for surveillance based on pathology results. Procedure Code(s): --- Professional --- 02857, PT, Colonoscopy, flexible; with removal of tumor(s), polyp(s), or other lesion(s) by snare technique 65835, 59, Colonoscopy, flexible; with biopsy, single or multiple Diagnosis Code(s): --- Professional --- Z86.010, Personal history of colonic polyps D12.5, Benign neoplasm of sigmoid colon D12.3, Benign neoplasm of transverse colon (hepatic flexure or splenic flexure) K62.1, Rectal polyp K57.30, Diverticulosis of large intestine without perforation or abscess without bleeding CPT copyright 2017 [employer]. All rights reserved. The codes documented in this report are preliminary and upon investment representative review may be revised to meet current compliance requirements. MD Nita Barr MD 04/05/2022 8:12:35 AM This report has been signed electronically. Number of Addenda: 0 Note Initiated On: 04/05/2022 7:25 AM
--- NOTE | 2022-04-05 08:13 | OP.CCLET_ITS ---
04/05/2022 Jorge Cardoso Re : Colonoscopy procedure for June Meade Dear Dr. Cardoso This procedure was performed on Tuesday, April 05, 2022. My impressions and recommendations are as follows: Impressions : - Diverticulosis in the sigmoid colon, in the descending colon and in the transverse colon. - Two 3 to 5 mm polyps in the sigmoid colon and in the transverse colon, removed with a hot snare. Resected and retrieved. - Multiple less than 5 mm polyps in the rectum, removed with a cold biopsy forceps. Resected and retrieved. - The examination was otherwise normal. Recommendations : - Discharge patient to home. - Resume previous diet. - Continue present medications. - Await pathology results. - Repeat colonoscopy in 3 - 5 years for surveillance based on pathology results. My findings are described in the full procedure note, which is enclosed. If I can be of further assistance, please feel free to contact me at Doctor phone number(s): , Work: . Sincerely, MD Nita Barr MD 04/05/2022 8:12:35 AM This report has been signed electronically.
== END 2022-04-05 09:02 | disposition home or self-care (01) ==
LOC: EN 06:16 → AC 06:18
PROVIDERS: PCP Family Medicine; Referring Provider Family Medicine; Visit Provider Surgery
PROC: 0DJD8ZZ Inspection of Lower Intestinal Tract, Via Natural or Artificial Opening Endoscopic (ICD-10-PCS; CPT 45378; principal; 2022-04-05 07:25)
DX: Z12.11 Encounter for screening for malignant neoplasm of colon (principal); K57.30 Diverticulosis of large intestine without perforation or abscess without bleeding; K63.5 Polyp of colon; K62.1 Rectal polyp; E78.00 Pure hypercholesterolemia, unspecified; I10 Essential (primary) hypertension; K21.9 Gastro-esophageal reflux disease without esophagitis; M99.02 Segmental and somatic dysfunction of thoracic region; Z86.010 Personal history of colon polyps; Z79.82 Long term (current) use of aspirin; Z80.0 Family history of malignant neoplasm of digestive organs; Z79.899 Other long term (current) drug therapy; Z86.73 Personal history of transient ischemic attack (TIA), and cerebral infarction without residual deficits
CPT/HCPCS: 45385; 45380; 88305; J7120; J2405

== ENCOUNTER → 2022-05-26 | Outpatient (CLI) | payer MEDICARE, OTHER, SELFPAY ==
[2022-05-26 15:35] LABS: ALB/GLOB Ratio 1.1 RATIO (0.9-2.4); AST(SGOT) 23 U/L (15-37); Alanine Aminotransfer ALT/SGPT 35 U/L (13-56); Alkaline Phosphatase 73 U/L (45-117); Anion Gap 6 (5-15); BUN 13 mg/dL (7-18); BUN/Creat Ratio 19.8 RATIO (10-20); Calcium,Total 9.6 mg/dL (8.5-10.1); Chloride 104 mmol/L (98-107); Cholesterol 167 mg/dL (200); Creatinine, Serum 0.66 mg/dL (0.55-1.02); EST Glomerular Filtration Rate 95 mL/min (>60); Est Glom Filt Rate - Afr Amer 115 mL/min (>60); Globulin 3.8 g/dL (2.2-4.2); Glucose 89 mg/dL (74-106); High Density Lipoprotein 51 mg/dL; Potassium 3.8 mmol/L (3.5-5.1); Protein, Total 7.8 g/dL (6.4-8.2); Sodium Level 138 mmol/L (136-145); Triglycerides 221 mg/dL; Very Low Density Lipoprotein 44 mg/dL (5-40)
== END | disposition home or self-care (01) ==
LOC: BIMLAB 12:15
PROVIDERS: PCP Family Medicine; Referring Provider Family Medicine; Visit Provider Family Medicine
DX: I10 Essential (primary) hypertension (principal)
CPT/HCPCS: 36415; 80053; 80061

== ENCOUNTER → 2022-06-02 | Outpatient (CLI) | payer MEDICARE, OTHER, SELFPAY ==
--- NOTE | 2022-06-02 13:54 | ECHOD_ITS ---
Reason For Study: MURMUR Procedure This was a 2D Doppler, Color Flow transthoracic echocardiogram. Exam performed in department. Left Ventricle Normal LV size. Left ventricular systolic function is normal. The estimated ejection fraction is 65 %. No regional wall motion abnormalities noted. Right Ventricle Normal RV size. Normal systolic function. Atria Normal left atrium. Normal right atrium. Mitral Valve Normal mitral valve. Tricuspid Valve Normal tricuspid valve. Mild (1+) tricuspid valve insufficiency. Pulmonary artery systolic pressure is 34 mmHg. Aortic Valve Trisinus/trileaflet aortic valve. Pulmonic Valve Normal pulmonic valve. Great Vessels Normal aortic root. The pulmonary artery is normal size. Normal inferior vena cava. Pericardium/Pleural No pericardial effusion. MMode/2D Measurements & Calculations LVIDd: 4.6 cm IVSd: 0.93 cm Ao root diam: 3.1 cm LVIDs: 2.8 cm LVPWd: 0.90 cm RVDd: 3.4 cm FS: 37.7 % LAV(MOD-bp): 32.6 ml LVAd ap4: 28.4 cm2 SV(MOD-sp4): 63.1 ml LAV(MOD-bp) Indexed: 18.2 ml/m2 LVLd ap4: 7.1 cm LAV(MOD-sp2): 30.1 ml EDV(MOD-sp4): 90.5 ml LAV(MOD-sp4): 33.8 ml EDV(sp4-el): 96.9 ml LVAs ap4: 13.7 cm2 LVLs ap4: 5.7 cm ESV(MOD-sp4): 27.4 ml ESV(sp4-el): 27.7 ml EF(MOD-sp4): 69.7 % EF(sp4-el): 71.4 % SV(sp4-el): 69.1 ml LA A4 area: 13.9 cm2 LA dimension(2D): 3.7 cm RA A4 area: 12.6 cm2 Time Measurements MV dec time: 0.23 sec Doppler Measurements & Calculations MV E max morales: 86.9 cm/sec Lat Peak E' Morales: 9.4 cm/sec Med Peak E' Morales: 6.7 cm/sec MV A max morales: 93.6 cm/sec E/E' lat: 9.3 E/E' med: 13.0 MV E/A: 0.93 Ao V2 max: 142.9 cm/sec AI max morales: 399.1 cm/sec LV V1 max: 111.2 cm/sec Ao max P.2 mmHg AI max P.7 mmHg LV V1 max P.9 mmHg AI dec slope: 172.6 cm/sec2 AI P1/2t: 677.2 msec PA V2 max: 114.1 cm/sec TR max morales: 272.4 cm/sec TR max P.7 mmHg ECHO/Echo Complete Interpretation Summary Normal LV size. Left ventricular systolic function is normal. The estimated ejection fraction is 65 %. Pulmonary artery systolic pressure is 34 mmHg. Structurally normal valves. Ordering Physician: Jorge Cardoso Referring Physician: Jorge Cardoso Performed By: Tamra Liao RDCS
== END | disposition home or self-care (01) ==
LOC: CVS 13:50
PROVIDERS: PCP Family Medicine; Referring Provider Family Medicine; Visit Provider Family Medicine
DX: Z12.11 Encounter for screening for malignant neoplasm of colon (principal); R01.1 Cardiac murmur, unspecified
CPT/HCPCS: 93306

== ENCOUNTER → 2022-08-11 | Outpatient (CLI) | payer MEDICARE, OTHER, SELFPAY ==
--- NOTE | 2022-08-11 10:10 | BI_ITS ---
MAMMOGRAPHY - BILATERAL SCREENING REASON FOR EXAM: Female, 71 years old. Routine annual screening examination. PERTINENT HISTORY: Sisters with breast cancer. TECHNIQUE: Digital bilateral breast easton (3D mammographic acquisition) in the CC and MLO projections. 2-D mediolateral oblique (MLO) and craniocaudad (CC) views of both breasts were obtained. CAD: Full Field Digital Mammography with Computer Added Detection was performed. COMPARISON: Comparison is made with prior study dated 04/24/2021 and 06/19/2020. FINDINGS: Breast Composition: There are scattered areas of fibroglandular density. There are no dominant masses or suspicious calcifications. Stable small benign-appearing bilateral axillary lymph nodes. No other significant abnormalities are identified. There has been no significant change since the prior study. BI/SCRN MAMM (CAD)W/EASTON BILAT IMPRESSION: Stable bilateral screening mammogram. Yearly follow-up mammogram recommended. (A) ASSESSMENT CATEGORY: BIRADS Category 2: Benign. A letter regarding these results will be sent to the patient by the facility within 30 days. Approximately 10% of breast cancers are not detected by mammography. A normal mammogram should not delay biopsy of a clinically suspicious abnormality. [id number] Electronically Signed: August Taylor MD at 11:01 EST ,
== END | disposition home or self-care (01) ==
LOC: OPBI 10:08
PROVIDERS: PCP Family Medicine; Referring Provider Family Medicine; Visit Provider Family Medicine
DX: Z12.31 Encounter for screening mammogram for malignant neoplasm of breast (principal); Z80.3 Family history of malignant neoplasm of breast
CPT/HCPCS: 77063; 77067

== ENCOUNTER → 2023-03-31 | Outpatient (CLI) | payer MEDICARE, OTHER, SELFPAY ==
[2023-03-31 10:43] LABS: Absolute Lymphocyte Count 1.82 X10^3/uL (0.83-4.51); Absolute Neutrophil Count 2.5 X10^3/uL (2.0-7.7); Basophil# 0.02 X10^3/uL; Basophil% 0.4 % (0-1); Eosinophil# 0.18 X10^3/uL; Eosinophils% 3.6 % (0-5); Hematocrit 42.9 % (37-47); Lymphocyte # 1.82 X10^3/ul (0.83-4.51); Lymphocyte % 36.8 % (19-41); Mean Corp Hgb Conc 32.6 g/dL (32-36); Mean Corpuscular Hgb 30.7 pg (27.0-32.0); Mean Corpuscular Volume 94.1 fL (81-99); Mean Platelet Vol. 12.1 fl (6.2-12.0); Monocyte# 0.44 X10^3/uL; Monocyte% 8.9 % (0-10); NRBC Flagged by Analyzer 0 % (0-5); Neutrophil # 2.47 X10^3/uL (2.7-7.7); Neutrophil % 50.1 % (47-70); Platelet Count 174 K/mm3 (150-450); RBC Distribution Width CV 12.8 % (11.6-14.6); RBC Distribution Width SD 43.9 fl (35.1-43.9); Red Blood Count 4.56 M/mm3 (4.2-5.4); White Blood Count 4.9 K/mm3 (4.4-11.0)
[2023-03-31 10:51] LABS: Erythrocyte Sedimentation Rate 3 mm/hr (0-30)
[2023-03-31 11:18] LABS: CRP < 2.90 mg/L (0.0-3.0)
== END | disposition home or self-care (01) ==
LOC: LAB 09:41
PROVIDERS: PCP Family Medicine; Referring Provider Orthopaedic Surgery; Visit Provider Orthopaedic Surgery
DX: T84.84XA Pain due to internal orthopedic prosthetic devices, implants and grafts, initial encounter (principal)
CPT/HCPCS: 36415; 85025; 85652; 86140

== ENCOUNTER → 2023-05-26 | Outpatient (CLI) | payer MEDICARE, OTHER, SELFPAY ==
[2023-05-26 16:23] LABS: ALB/GLOB Ratio 1.2 RATIO (0.9-2.4); AST(SGOT) 19 U/L (15-37); Alanine Aminotransfer ALT/SGPT 35 U/L (13-56); Albumin, Serum 3.8 g/dL (3.2-5.0); Alkaline Phosphatase 68 U/L (45-117); Anion Gap 6 (5-15); BUN 19 mg/dL (7-18); BUN/Creat Ratio 31.2 RATIO (10-20); Calcium,Total 9.4 mg/dL (8.5-10.1); Chloride 106 mmol/L (98-107); Cholesterol 176 mg/dL (200); Creatinine, Serum 0.61 mg/dL (0.55-1.02); EST Glomerular Filtration Rate 103 mL/min (>60); Est Glom Filt Rate - Afr Amer 124 mL/min (>60); Globulin 3.3 g/dL (2.2-4.2); Glucose 99 mg/dL (74-106); High Density Lipoprotein 49 mg/dL; Potassium 4.3 mmol/L (3.5-5.1); Protein, Total 7.1 g/dL (6.4-8.2); Sodium Level 140 mmol/L (136-145); Triglycerides 243 mg/dL; Very Low Density Lipoprotein 49 mg/dL (5-40)
== END | disposition home or self-care (01) ==
LOC: BIMLAB 11:14
PROVIDERS: PCP Family Medicine; Referring Provider Family Medicine; Visit Provider Family Medicine
DX: I10 Essential (primary) hypertension (principal)
CPT/HCPCS: 36415; 80053; 80061

== ENCOUNTER → 2023-08-12 | Outpatient (CLI) | payer MEDICARE, OTHER, SELFPAY ==
--- NOTE | 2023-08-12 10:22 | BI_ITS ---
MAMMOGRAPHY - BILATERAL SCREENING REASON FOR EXAM: Female, 72 years old. Routine annual screening examination. PERTINENT HISTORY: Sisters with breast cancer. TECHNIQUE: Digital bilateral breast easton (3D mammographic acquisition) in the CC and MLO projections. 2-D mediolateral oblique (MLO) and craniocaudad (CC) views of both breasts were obtained. CAD: Full Field Digital Mammography with Computer Added Detection was performed. COMPARISON: Comparison is made with prior study dated February 08, 2023 and July 24, 2021. FINDINGS: Breast Composition: There are scattered areas of fibroglandular density. There are no dominant masses or suspicious calcifications. No other significant abnormalities are identified. There has been no significant change since the prior study. BI/SCRN MAMM (CAD)W/EASTON BILAT IMPRESSION: Stable bilateral screening mammogram. Yearly follow-up mammogram recommended. (A) ASSESSMENT CATEGORY: BIRADS Category 1: Negative. A letter regarding these results will be sent to the patient by the facility within 30 days. Approximately 10% of breast cancers are not detected by mammography. A normal mammogram should not delay biopsy of a clinically suspicious abnormality. [id number] Electronically Signed: August Taylor MD at 15:18 EST ,
== END | disposition home or self-care (01) ==
LOC: OPBI 10:22
PROVIDERS: PCP Family Medicine; Referring Provider Family Medicine; Visit Provider Family Medicine
DX: Z12.31 Encounter for screening mammogram for malignant neoplasm of breast (principal)
CPT/HCPCS: 77063; 77067

== ENCOUNTER 2023-11-02 08:15 | Day surgery (SDC) | payer MEDICARE, OTHER, SELFPAY ==
--- NOTE | 2023-11-02 | GASB_PTH ---
PATIENT: AARON CORONADO LOC: EN U#:[id number] AGE/SX: 73/F ROOM: RE11/02/[address]: Dr. Nita Mark MD : 1950 BED: DIS: 11/02/2023 SPEC #: [id number] RECD: 11/02/23 12:55 STATUS: HERNÁN RENancy #: [id number] MAXIMUS: 11/02/23 00:[address]: Nita Mark DEPT: SURGICAL PATHOLOGY RECD BY: Elver Genao ENTERED: 11/02/23 12:56 SP TYPE: Gastric Bx QUINN DR: Dr. Jorge Cardoso, DO Tissues: B - Gastric mucous membrane A - Pylorus Procedures: Special Stain Group II Surgery Specimen Level IV Alcian Blue/PAS (control) HEADER OPERATION: EGD biopsy, polypectomy PRE-OP DIAGNOSIS: GERD TISSUE SUBMITTED: A- Pre-pyloric biopsy, B- Gastric polyp, C- Gastroesophageal junction MICROSCOPIC DIAGNOSIS A. Pre-pyloric biopsy; Chronic gastritis. See comment. B. Gastric polyp, biopsy; Fragments of fundic gland polyp. C. Gastroesophageal junction, biopsy; Mild chronic inflammation. Changes of reflux. No evidence of goblet cell metaplasia. See comment. MARIA ISABEL/ 11/03/2023 COMMENT A. The results of immunohistochemistry for Helicobacter pylori will be reported separately ([id number]). C. Alcian blue/PAS stain with matched control supports the above diagnosis. MICROSCOPIC DESCRIPTION Slides are reviewed. GROSS DESCRIPTION A. Received in fixative is one container labeled with the patient's name and designated Pre-pyloric biopsy. The specimen consists of two irregular fragments of light carlos soft tissue that in aggregate measure 0.7 x 0.5 x 0.1 cm. The specimen is totally submitted in one cassette. B. Received in fixative is one container labeled with the patient's name and designated Gastric polyp. The specimen consists of two irregular fragments of light carlos soft tissue that in aggregate measure 1.5 x 1.0 x 0.1 cm. The specimen is totally submitted in one cassette. C. Received in fixative is one container labeled with the patient's name and designated GE junction. The specimen consists of one irregular fragment of light carlos soft tissue that measures 0.5 x 0.3 x 0.1 cm. The specimen is totally submitted in one cassette. MARIA ISABEL/ 11/02/23 TC:3 CPT: 61475,96044i9
--- NOTE | 2023-11-02 08:38 | PCM.HP.BLA ---
History and Physical Date of Admission: 11/02/23 Date of Service: 10/10/23 MR#: [id number] Acct: [id number] Name: AARON CORONADO Rep #: [id number] : 1950 Provider: Dr. Nita Mark MD Age/Sex: 72/F Location: [facility] Status: Signed Intake Vital Signs 09/28/2409:54 10/09/2414:03 Height 5 ft 1 in 5 ft 1 in Weight: 179 lb 8 oz 179 lb BMI 33.9 33.8 BP 124/78 H 118/80 Blood Pressure Location Lt brachial Rt brachial Position Sitting Sitting Respiration 16 16 Pulse 74 Pulse Source Monitor Temp 97.6 F L Temp Source Temporal Pulse Oximetry (%) 97 Oxygen Delivery Method room air Intake Visit Reasons: Reflux Chief Complaint: reflux/egd Manager Party Required: No Is patient in pain?: No Allergies latex Allergy (Verified 10/10/23 15:03) BREAK OUT RED Medications cholecalciferol (vitamin D3) 25 mcg (1,000 unit) tablet 1,000 unit PO DAILY supplement 09/04/15 [History Confirmed 10/10/23] potassium 99 mg tablet 99 mg PO DAILY supplement 09/04/15 [History Confirmed 10/10/23] pyridoxine (vitamin B6) 50 mg tablet 200 mg PO DAILY supplement 09/04/15 [History Confirmed 10/10/23] vitamin E (dl, acetate) 180 mg (400 unit) capsule 400 units PO DAILY supplement 09/04/15 [History Confirmed 10/10/23] aspirin 81 mg tablet,delayed release 81 mg PO DAILY heart health 04/13/18 [History Confirmed 10/10/23] vitamin B12 500 mcg-folic acid 400 mcg tablet 1 tab PO DAILY supplement 04/13/18 [History Confirmed 10/10/23] ascorbic acid (vitamin C) 500 mg capsule See Rx Instructions PO DAILY supplement 05/11/22 [History Confirmed 10/10/23] fezolinetant 45 mg tablet ([place]) 45 mg PO DAILY #30 tabs 05/26/23 [Rx Confirmed 10/10/23] pantoprazole 40 mg tablet,delayed release 40 mg PO DAILY #90 tabs 05/26/23 [Rx Confirmed 10/10/23] rosuvastatin 10 mg tablet See Rx Instructions .Route .COMPLEX #90 tabs 08/15/23 [Rx Confirmed 10/10/23] valsartan 160 mg-hydrochlorothiazide 12.5 mg tablet See Rx Instructions .Route .COMPLEX #90 tabs 08/15/23 [Rx Confirmed 10/10/23] PFSH Medical History (Updated 10/11/23 @ 13:[address] Nita Makr MD) Anemia Arthritis Blackout Cataracts, both eyes COVID Difficulty swallowing GERD (gastroesophageal reflux disease) Hearing problem High cholesterol History of colonic polyps History of diverticulitis History of sarcoidosis Hypertension Hypertension Leg cramps Loss of consciousness Non-smoker Restless legs Sarcoidosis Shortness of breath on exertion Stroke TIA (transient ischemic attack) Wears glasses Wears hearing aid Wears partial dentures Surgical History History of bilateral cataract extraction History of bladder suspension procedure History of cholecystectomy History of colonoscopy History of endoscopy History of hysterectomy History of knee replacement History of left knee replacement Family History Brother Prostate cancer Heart disease History of open heart surgery Colon cancerSister Heart disease Breast cancer HypertensionDaughter Congenital heart diseaseFather Heart diseaseMother Heart disease Social History Smoking Status: Never smoker alcohol intake: never substance use type: does not use what type of physical activity do you participate in: none HPI HPI HPI: 72-year-old female presents for EGD due to reflux. Patient states that she has been on Protonix since May 2023 and until last week was having symptoms daily. Patient states that has been better in the last week. Patient has also cut down on amount of Pepsi she drinks and also avoids pizza. Patient's symptoms for reflux is burning up her esophagus. Patient denies any abdominal pain/nausea/vomiting. Patient was previously on Nexium 40 mg p.o. daily for about 2 years before the Protonix. Patient had previously been on other medications prior to this but patient cannot remember exactly what they were. Patient had a EGD about 20 years ago. Patient states she has bowel movements daily denies any blood patient did have a colonoscopy 03/2022 which she did have some colon polyps. Patient states she will occasionally wake up with a cough in the middle of the night and will take Tums and turn onto her right side and the symptoms will resolve. ROS General General: No weight change, appetite, fatigue, colon cancer, breast cancer or weakness HEENT HEENT: Yes difficulty swallowing, eye injury and eye surgery; No swollen glands or hoarseness Endo Endocrine: No thyroid disease, diabetes mellitus, thyroid cancer, Hair loss, heat intolerance or cold intolerance Skin Skin: No rash or changing moles Breast Breast: No left breast lump, right breast lump, nipple discharge, breast pain, abnormal mammogram, abnormal US or breast enlargement Musc Musculoskeletal: Yes arthritis; No back problems, rheumatoid arthritis, gout or joint pain Cardio Cardiovascular: Yes high blood pressure; No murmur, pacemaker, heart disease, atrial fibrillation, heart attack, heart stent, palpitations, shortness of breat with exertion or chest pain Psych Psychiatric: No depression, anxiety or hearing voices Resp Respiratory: No shortness of breath, No sleep apnea, No cough, No COPD, No asthma, No emphysema and No wheezing Gastro Gastrointestinal: No abdominal pain, No nausea or vomiting, Yes diarrhea, No constipation, No blood in stool, Yes acid reflux, Yes hemorrhoids, No ulcers, No gallbladder problem and No black,tarry stools Morgan Hematologic: No blood thinners, No blood disorders, No bleeding, No anemia and No blood clots Neuro Neurologic: No system reviewed and no additional complaints, except as documented, No as per HPI, No abnormal gait, No abnormal hearing, No abnormal movements, No abnormal speech, No behavioral changes, No burning sensations, No confusion, No convulsions, No disequilibrium, No dizziness, No localized weakness, No frequent falls, No headache(s), No lack of coordination, No loss of vision, No memory loss, No numbness, No other visual disturbances, No radicular pain, No restless legs, No sensory deficit, No syncope, No tingling, No tremor(s), No weakness and No other Exam Const General: cooperative, healthy appearing, comfortable and no acute distress [facility] Head: normocephalic and atraumatic Neck Neck: supple Resp Effort & Inspection: normal respiratory effort Cardio Rate: regular rate GI Inspection: non-distended Palpation: soft, no hernias and nontender Skin General: no rashes or lesions noted Neuro General: CN's II-XI intact bilaterally Extrem General: normal to inspection Psych Mental Status: mental status grossly normal Attitude: cooperative Assessment and Plan Assessment and Plan (1) GERD (gastroesophageal reflux disease): Status: Chronic Plan Patient will hold her aspirin 81 mg x 5 days. I have discussed the above with the patient. I have offered the patient esophagogastroduodenoscopy for evaluation. I have explained the risks/benefits of the procedure and described the procedure. I have discussed the risks with the patient, including but not limited to: infection, bleeding, perforation of the GI tract requiring emergency surgery, inability to complete the procedure, injury to any internal organs, complications of anesthesia, etc. - the patient understands and agrees to proceed. I have answered all the patient's questions to the patient's satisfaction and the patient has no further questions. Nita Mark M.D. Pager: [phone] [facility] [address] [place] [address], [address] [place] [address] Office: [phone] Coding Level of Care Code Off vis,est,level 3 Diagnoses GERD (gastroesophageal reflux disease) K21.9 10/11/23 1342 <Electronically signed by Nita Mark MD> Date Nita Mark MD
[2023-11-02 08:44] VITALS: BP 99/57; PULSE 59; RESP 18; TEMP 36.6; O2SAT 99; BMI 33.7
[2023-11-02] MEDS: Lactated Ringers 1,000 ML 15 ML IV (08:53)
[2023-11-02 09:40] VITALS: BP 119/66; BP 99/57; PULSE 83; RESP 16; TEMP 36.1; O2SAT 93
[2023-11-02 09:45] VITALS: BP 106/63; BP 99/57; PULSE 81; RESP 16; O2SAT 95
--- NOTE | 2023-11-02 09:45 | IMM_PTH ---
PATIENT: AARON CORONADO LOC: EN U#:[id number] AGE/SX: 73/F ROOM: RE11/02/[address]: Dr. Nita Mark MD : 1950 BED: DIS: 11/02/2023 SPEC #: [id number] RECD: 11/02/23 14:12 STATUS: HERN[place]N REQ #: [id number] MAXIMUS: 11/02/23 09:[address]: Nita Mark DEPT: IMMUNOHISTOCHEMISTRY RECD BY: Te Trujillo ENTERED: 11/02/23 14:13 SP TYPE: IMMUNO OTHR DR: Dr. Jorge Cardoso, DO Tissues: A - Pyloric portion of stomach Procedures: H Pylori (initial) PHYSICIAN & INSTITUTION [place] [id number] SPECIMEN INFORMATION: Tissue Source: Pre-pyloric biopsy Clinical Info: GERD Specimen Number: [id number] CPT code: 88447 METHODOLOGY: Deparaffinized sections of prefer/formalin-fixed tissue or PAP/DQ stained slides are incubated with monoclonal/polyclonal antibodies/oligonucleotide probes. Localization is made via biotin free immunoperoxidase method. Appropriate controls are performed and reacted as expected. Results on target cell population are indicated in the following table: RESULTS: ANTIBODY / CLONE RESULT Block A H Pylori (polyclonal) negative These tests were developed and their performance characteristics determined by [facility]. They may not have been cleared or approved by the U.S. Food and Drug Administration. The FDA has determined that such clearance or approval is not necessary. The above immunohistochemical/dualISH markers are ordered and reviewed by the Pathologist. INTERPRETATION: Pre-pyloric, biopsy; Negative for Helicobacter pylori organisms. MARIA ISABEL/ 11/03/2023
--- NOTE | 2023-11-02 09:47 | OP.CCLET_ITS ---
11/02/2023 Jorge Cardoso Re : Upper GI endoscopy procedure for June Meade Dear Dr. Cardoso This procedure was performed on Thursday, November 02, 2023. My impressions and recommendations are as follows: Impressions : - Z-line irregular, 33 cm from the incisors. Biopsied. - Multiple gastric polyps. Resected and retrieved. - Normal examined duodenum. - Erythematous mucosa in the prepyloric region of the stomach. Biopsied. Recommendations : - Await pathology results. - Return to my office in 2 weeks- call for appt. - Discharge patient to home. - Resume previous diet. - Continue present medications. - Use Prilosec (omeprazole) 40 mg PO daily. stop pantoprazole - Use sucralfate tablets 1 gram PO QID for 2 weeks. My findings are described in the full procedure note, which is enclosed. If I can be of further assistance, please feel free to contact me at Doctor phone number(s): , Work: . Sincerely, MD Nita Barr MD 11/02/2023 9:46:30 AM This report has been signed electronically.
--- NOTE | 2023-11-02 09:47 | OP.EGD_ITS ---
Patient Name: June Meade Procedure Date: 11/02/2023 9:18 AM Date of : 1950 Age: 73 Procedure: Upper GI endoscopy Indications: Heartburn Providers: Nita Mark MD Referring MD: Jorge Cardoso Medicines: Monitored Anesthesia Care Patient Profile: This is a 73 year old female. Complications: No immediate complications. Procedure: Pre-Anesthesia Assessment: - Prior to the procedure, a History and Physical was performed, and patient medications and allergies were reviewed. The patient's tolerance of previous anesthesia was also reviewed. The risks and benefits of the procedure and the sedation options and risks were discussed with the patient. All questions were answered, and informed consent was obtained. Prior Anticoagulants: The patient has taken no anticoagulant or antiplatelet agents except for aspirin. ASA Grade Assessment: Per anesthesia. After reviewing the risks and benefits, the patient was deemed in satisfactory condition to undergo the procedure. After obtaining informed consent, the endoscope was passed under direct vision. Throughout the procedure, the patient's blood pressure, pulse, and oxygen saturations were monitored continuously. The gastroscope was introduced through the mouth, and advanced to the second part of duodenum. The upper GI endoscopy was accomplished without difficulty. The patient tolerated the procedure well. Scope In: 9:25:27 AM Scope Out: 9:34:14 AM Total Procedure Duration Time 0 hours 8 minutes 47 seconds Findings: The Z-line was irregular and was found 33 cm from the incisors. Biopsies were taken with a cold forceps for histology. Multiple 2 to 5 mm semi-pedunculated polyps with no bleeding and no stigmata of recent bleeding were found in the gastric body. The polyp was removed with a hot snare. Resection and retrieval were complete. The examined duodenum was normal. Localized moderately erythematous mucosa without bleeding was found in the prepyloric region of the stomach. Biopsies were taken with a cold forceps for histology. Biopsies were taken with a cold forceps for Helicobacter pylori testing. Impression: - Z-line irregular, 33 cm from the incisors. Biopsied. - Multiple gastric polyps. Resected and retrieved. - Normal examined duodenum. - Erythematous mucosa in the prepyloric region of the stomach. Biopsied. Recommendation: - Await pathology results. - Return to my office in 2 weeks- call for appt. - Discharge patient to home. - Resume previous diet. - Continue present medications. - Use Prilosec (omeprazole) 40 mg PO daily. stop pantoprazole - Use sucralfate tablets 1 gram PO QID for 2 weeks. Procedure Code(s): --- Professional --- 92620, Esophagogastroduodenoscopy, flexible, transoral; with removal of tumor(s), polyp(s), or other lesion(s) by snare technique 74187, 59, Esophagogastroduodenoscopy, flexible, transoral; with biopsy, single or multiple Diagnosis Code(s): --- Professional --- K22.89, Other specified disease of esophagus K31.7, Polyp of stomach and duodenum K31.89, Other diseases of stomach and duodenum R12, Heartburn CPT copyright 2021 [employer]. All rights reserved. The codes documented in this report are preliminary and upon dispatcher service review may be revised to meet current compliance requirements. MD Nita Barr MD 11/02/2023 9:46:30 AM This report has been signed electronically. Number of Addenda: 0 Note Initiated On: 11/02/2023 9:18 AM
[2023-11-02 09:50] VITALS: BP 106/72; BP 99/57; PULSE 78; RESP 16; O2SAT 99
[2023-11-02 09:55] VITALS: BP 105/70; BP 99/57; PULSE 75; RESP 16; TEMP 36.8; O2SAT 98
[2023-11-02 10:14] VITALS: BP 99/57
== END 2023-11-02 10:31 | disposition home or self-care (01) ==
LOC: EN 08:17 → AC 08:17
PROVIDERS: PCP Family Medicine; Referring Provider Family Medicine; Visit Provider Surgery
PROC: 0DJ08ZZ Inspection of Upper Intestinal Tract, Via Natural or Artificial Opening Endoscopic (ICD-10-PCS; CPT 43235; principal; 2023-11-02 09:40)
DX: K21.00 Gastro-esophageal reflux disease with esophagitis, without bleeding (principal); K29.50 Unspecified chronic gastritis without bleeding; K31.89 Other diseases of stomach and duodenum; K31.7 Polyp of stomach and duodenum; I10 Essential (primary) hypertension; E78.00 Pure hypercholesterolemia, unspecified; Z79.82 Long term (current) use of aspirin; Z79.899 Other long term (current) drug therapy; Z86.16 Personal history of COVID-19; Z86.73 Personal history of transient ischemic attack (TIA), and cerebral infarction without residual deficits
CPT/HCPCS: 43239; 43251; 88305; 88313; 88342; J7120

== ENCOUNTER → 2024-06-05 | Outpatient (CLI) | payer MEDICARE, OTHER, SELFPAY ==
[2024-06-05 17:24] LABS: ALB/GLOB Ratio 1.1 RATIO (0.9-2.4); AST(SGOT) 20 U/L (15-37); Alanine Aminotransfer ALT/SGPT 33 U/L (13-56); Albumin, Serum 3.8 g/dL (3.2-5.0); Alkaline Phosphatase 70 U/L (45-117); Anion Gap 7 (5-15); BUN 12 mg/dL (7-18); BUN/Creat Ratio 14.9 RATIO (10-20); Calcium,Total 9.3 mg/dL (8.5-10.1); Chloride 104 mmol/L (98-107); Cholesterol 181 mg/dL (200); Creatinine, Serum 0.81 mg/dL (0.55-1.02); EST Glomerular Filtration Rate 74 mL/min (>60); Est Glom Filt Rate - Afr Amer 90 mL/min (>60); Globulin 3.6 g/dL (2.2-4.2); Glucose 101 mg/dL (74-106); High Density Lipoprotein 51 mg/dL; Potassium 3.8 mmol/L (3.5-5.1); Protein, Total 7.4 g/dL (6.4-8.2); Sodium Level 136 mmol/L (136-145); Triglycerides 224 mg/dL; Very Low Density Lipoprotein 45 mg/dL (5-40)
--- OUTSIDE RECORDS SUMMARY | 2024-06-05 19:56 | XMS RPT_ITS | CCD ---
Author Organization [facility] Care Team Providers Care Gym Teacher Name Role Phone NONE, NONE Consulting Unavailable NONE, NONE Primary Care Unavailable ABHAY VILLAR, DR SIFUENTES Attending Unavailable ABHAY VILLAR, DR SIFUENTES Admitting Unavailable NONE, NONE Consulting Unavailable NONE, NONE Primary Care Unavailable ABHAY VILLAR, DR SIFUENTES Attending Unavailable ABHAY VILLAR, DR SIFUENTES Admitting Unavailable ABHAY VILLAR, DR SIFUENTES Admitting Unavailable NONE, NONE Consulting Unavailable NONE, NONE Primary Care Unavailable ABHAY VILLAR, DR SIFUENTES Attending Unavailable Problems Problem Classification Problem Date Documented Da te Episodic/Chronic Immunizations and screening for infectious disease (2 sources) Encounter for immunization; Translations: [ENCOUNTER FOR IMMUNIZATION] Onset: 06-25-2021 Episodic Encounters Encounter Date Encounter Type Care Provider Facility Start: 06-25-2021 End: 06-26-[address] BEAR BLANK MD Facility:[facility] Start: 10-31-2020 End: 11-01-2020 ambulatory NONE NONE Facility:[facility] Start: 10-10-2020 End: 10-11-2020 ambulatory NONE NONE Facility:[facility] Payers Date Payer Category Payer Medicare [id number] 1958 Unknown 1950 Unknown [id number] 1950 Unknown [id number] 1950 Unknown [id number] Summary Purpose Family History No Family History Records Found Advance Directives No Advanced Directives Records Found Additional Source Comments INFORMATION SOURCE (unrecogn ized section and content) DATE CREATED AUTHOR 07/01/[address] [facility] FOR RECORDS PERTAINING TO PATIENTS WHO ARE OR HAVE BEEN ENROLLED IN A CHEMICAL DEPENDENCY/SUBSTANCEABUSE PROGRAM, SOME INFORMATION MAY BE OMITTED. This clinical summary was aggregated from multiple sources. Caution should be exercised in using it in the provision of clinical care. This summary normalizes information from multiple sources, and as a consequence, information in this document may materially change the coding, format and clinical context of patient data. In addition, data may be omitted in some cases. CLINICAL DECISIONS SHOULD BE BASED ON THE PRIMARY CLINICAL RECORDS. [facility]. provides no warranty or guarantee of the accuracy or completeness of information in this document.
== END | disposition home or self-care (01) ==
LOC: BIMLAB 16:02
PROVIDERS: PCP Family Medicine; Referring Provider Family Medicine; Visit Provider Family Medicine
DX: I10 Essential (primary) hypertension (principal); E78.00 Pure hypercholesterolemia, unspecified
CPT/HCPCS: 36415; 80053; 80061

== ENCOUNTER → 2025-03-07 | Outpatient (CLI) | payer MEDICARE, OTHER, SELFPAY ==
--- NOTE | 2025-03-07 15:13 | VDLE_ITS ---
Reason For Study Reason For Study: LLE Swelling RIGHT LEFT FV is compressible, spontaneous, phasic, competent GSV is normal. and demonstrates normal augmentation. CFV is compressible, spontaneous, phasic, competent, Procedure and demonstrates normal augmentation. This is a venous duplex using B-mode, color flow and FV is compressible, spontaneous, phasic, competent spectral Doppler. and demonstrates normal augmentation. Exam performed in department. POP V is compressible, spontaneous, phasic, competent The exam was diagnostic. and demonstrates normal augmentation. A preliminary report was called and/or faxed to T/P Trunk is compressible. Neo Catherine's office. PTV is compressible. LT PerV is compressible. VL/Venous Duplex US, Unilateral Interpretation Summary Deep veins of the left lower extremity are patent and compressible segmentally. There is no evidence of left lower extremity deep vein thrombosis. Valvular competence appears intact within the p roximal deep venous system on the left . The left great saphenous vein appears patent and compressible segmentally. The right femoral vein is patent and compressible. Ordering Physician: Neo Catherine Referring Physician: Jorge Cardoso Performed By: Shlomo Colon RVT
== END | disposition home or self-care (01) ==
LOC: CVS 15:12
PROVIDERS: PCP Family Medicine; Referring Provider Physician Assistant; Visit Provider Physician Assistant
DX: M79.89 Other specified soft tissue disorders (principal); M79.662 Pain in left lower leg
CPT/HCPCS: 93971

== ENCOUNTER → 2025-04-23 | Outpatient (CLI) | payer MEDICARE, OTHER, SELFPAY ==
[2025-04-23 15:28] LABS: Hematocrit 38.4 % (37-47); Hemoglobin 12.8 g/dL (12.0-15.0); Immature Granulocytes Count 0.020 X10^3/uL (0.0-0.0); Mean Corp Hgb Conc 33.3 g/dL (32-36); Mean Corpuscular Volume 93.2 fL (81-99); Mean Platelet Vol. 12.5 fl (6.2-12.0); NRBC Flagged by Analyzer 0 % (0-5); Platelet Count 173 K/mm3 (150-450); RBC Distribution Width CV 13.4 % (11.6-14.6); RBC Distribution Width SD 45.8 fl (35.1-43.9); Red Blood Count 4.12 M/mm3 (4.2-5.4); White Blood Count 4.9 K/mm3 (4.4-11.0)
[2025-04-23 16:22] LABS: AST(SGOT) 29 U/L (<=31); Alanine Aminotransfer ALT/SGPT 29 U/L (<=34); Albumin, Serum 4.3 g/dL (3.4-4.8); Alkaline Phosphatase 69 U/L (35-104); Anion Gap 12 (5-15); BUN 10 mg/dL (4-19); BUN/Creat Ratio 17.6 RATIO (10-20); Calcium,Total 9.8 mg/dL (7.6-11.0); Carbon Dioxide 24.5 mmol/L (21.0-32.0); Chloride 103 mmol/L (98-108); Cholesterol 176 mg/dL (<=200); Globulin 2.7 g/dL (2.2-4.2); Glucose 100 mg/dL (70-99); Low Density Lipoprotein Calc. 81 mg/dL; Potassium 4.1 mmol/L (3.3-5.1); Triglycerides 244 mg/dL; Very Low Density Lipoprotein 49 mg/dL (5-40); cholesterol:hdl ratio screen 3.82
== END | disposition home or self-care (01) ==
LOC: BIMLAB 11:51
PROVIDERS: PCP Family Medicine; Referring Provider Family Medicine; Visit Provider Family Medicine
DX: I10 Essential (primary) hypertension (principal); E78.00 Pure hypercholesterolemia, unspecified; Z86.73 Personal history of transient ischemic attack (TIA), and cerebral infarction without residual deficits
CPT/HCPCS: 36415; 80053; 80061; 85025